=== PATIENT | male | born 1965 | race Two or more races ===

== ENCOUNTER 2020-06-02 06:27 | Outpatient (REF) | payer OTHER, SELFPAY ==
[2020-06-02 07:03] LABS: MANUAL DIFF FLAG NO
[2020-06-02 07:07] LABS: Basophils Percent Auto 0.3 % (0-2); Eosinophils Absolute Auto 0.1 X10*3/uL (0.0-0.4); Eosinophils Percent Auto 0.7 % (0-4); Hematocrit 43.1 % (42-52); Hemoglobin 14.2 g/dl (14.0-18.0); Imm Gran Abs Auto 0.03 X10*3/uL (0.00-0.03); Imm Gran Pct Auto 0.3 % (0.0-0.4); Lymphocytes Absolute Auto 1.9 X10*3/uL (1.2-4.9); Lymphocytes Percent Auto 20.6 % (20-40); Mean Corpuscular HGB Conc 32.9 g/dl (31.0-36.0); Mean Corpuscular Hemoglobin 29.8 pg (27.0-33.0); Mean Corpuscular Volume 90.4 fL (80-98); Mean Platelet Volume 9.1 fL (9.4-12.4); Monocytes Absolute Auto 0.6 X10*3/uL (0.1-1.2); Monocytes Percent Auto 6.5 % (2-11); Neutrophils Absolute Auto 6.5 X10*3/uL (2.0-8.3); Neutrophils Percent Auto 71.6 % (45-73); Platelet Count 315 X10*3/uL (160-400); Red Blood Count 4.77 X10*6/uL (4.60-5.80); Red Cell Distribution Width 12.5 % (11.0-16.0); White Blood Count 9.1 X10*3/uL (4.8-10.8)
[2020-06-02 07:35] LABS: Alanine Aminotransferase 25 U/L (0-40); Albumin Level 4.2 g/dL (3.5-5.0); Alkaline Phosphatase 82 U/L (39-117); Anion Gap 13 (12-20); Aspartate Amino Transferase 20 U/L (5-37); Bilirubin Total 0.7 mg/dL (0.0-1.0); Blood Urea Nitrogen 21 mg/dL (9-16); C Reactive Protein 0.66 mg/dL (< or = 0.50); Calcium 9.1 mg/dL (8.4-10.2); Carbon Dioxide 28 mmol/L (22-29); Chloride 103 mmol/L (96-108); Estimated Glomerular Filt Rate > 60; Glucose Random 103 mg/dL (60-115); Potassium 4.8 mmol/l (3.3-5.1); Sodium 139 mmol/L (135-145); Total Protein 8.2 g/dL (6.5-8.0)
[2020-06-02 09:08] LABS: Erythrocyte Sedimentation Rate 14 MM/HR (0-15)
== END 2020-06-02 06:28 | disposition home or self-care (01) ==
LOC: HO.LAB 06:27
PROVIDERS: PCP Nurse Practitioner Family; Visit Provider Student in an Organized Health Care Education/Training Program
DX: M06.00 Rheumatoid arthritis without rheumatoid factor, unspecified site (principal); Z79.899 Other long term (current) drug therapy
CPT/HCPCS: 36415; 80053; 85025; 85652; 86140

== ENCOUNTER → 2020-06-08 11:29 | Outpatient (BNVA) | payer OTHER, SELFPAY | PROVIDERS: PCP Nurse Practitioner Family; Referring Provider Nurse Practitioner Family; Visit Provider Student in an Organized Health Care Education/Training Program | DX: Z76.89 Persons encountering health services in other specified circumstances (principal) ==

== ENCOUNTER 2020-06-27 16:31 | Outpatient (REF) | payer OTHER, SELFPAY | END 2020-06-27 16:32 | disposition home or self-care (01) | LOC: HO.LAB 16:31 | PROVIDERS: Visit Provider Internal Medicine | DX: Z20.828 Contact with and (suspected) exposure to other viral communicable diseases (principal) | CPT/HCPCS: 36415; C9803; U0003 ==

== ENCOUNTER 2020-09-15 15:48 | Outpatient (REF) | payer OTHER, SELFPAY ==
[2020-09-15 16:42] LABS: MANUAL DIFF FLAG NO
[2020-09-15 16:52] LABS: Basophils Percent Auto 0.4 % (0-2); Eosinophils Absolute Auto 0.1 X10*3/uL (0.0-0.4); Eosinophils Percent Auto 0.6 % (0-4); Hematocrit 37.6 % (42-52); Hemoglobin 12.1 g/dl (14.0-18.0); Imm Gran Abs Auto 0.03 X10*3/uL (0.00-0.03); Imm Gran Pct Auto 0.3 % (0.0-0.4); Lymphocytes Absolute Auto 2.5 X10*3/uL (1.2-4.9); Lymphocytes Percent Auto 26.6 % (20-40); Mean Corpuscular HGB Conc 32.2 g/dl (31.0-36.0); Mean Corpuscular Hemoglobin 29.7 pg (27.0-33.0); Mean Corpuscular Volume 92.2 fL (80-98); Mean Platelet Volume 8.7 fL (9.4-12.4); Monocytes Absolute Auto 0.5 X10*3/uL (0.1-1.2); Monocytes Percent Auto 5.4 % (2-11); Neutrophils Absolute Auto 6.3 X10*3/uL (2.0-8.3); Neutrophils Percent Auto 66.7 % (45-73); Platelet Count 324 X10*3/uL (160-400); Red Blood Count 4.08 X10*6/uL (4.60-5.80); Red Cell Distribution Width 12.7 % (11.0-16.0); White Blood Count 9.4 X10*3/uL (4.8-10.8)
[2020-09-15 17:11] LABS: Alanine Aminotransferase 22 U/L (0-40); Albumin Level 4.2 g/dL (3.5-5.0); Alkaline Phosphatase 85 U/L (39-117); Anion Gap 14 (12-20); Aspartate Amino Transferase 19 U/L (5-37); Bilirubin Total 0.2 mg/dL (0.0-1.0); Blood Urea Nitrogen 21 mg/dL (9-16); C Reactive Protein 0.47 mg/dL (< or = 0.50); Calcium 9.3 mg/dL (8.4-10.2); Carbon Dioxide 27 mmol/L (22-29); Chloride 105 mmol/L (96-108); Estimated Glomerular Filt Rate > 60; Glucose Random 95 mg/dL (60-115); Sodium 141 mmol/L (135-145); Total Protein 8.1 g/dL (6.5-8.0)
[2020-09-15 17:59] LABS: Erythrocyte Sedimentation Rate 20 MM/HR (0-15)
== END 2020-09-15 15:49 | disposition home or self-care (01) ==
LOC: HO.LAB 15:48
PROVIDERS: PCP Nurse Practitioner Family; Visit Provider Student in an Organized Health Care Education/Training Program
DX: M06.00 Rheumatoid arthritis without rheumatoid factor, unspecified site (principal); Z79.899 Other long term (current) drug therapy
CPT/HCPCS: 36415; 80053; 85025; 85652; 86140

== ENCOUNTER 2021-01-17 15:48 | Outpatient (REF) | payer OTHER, SELFPAY ==
[2021-01-17 16:37] LABS: MANUAL DIFF FLAG NO
[2021-01-17 16:41] LABS: Basophils Percent Auto 0.4 % (0-2); Eosinophils Absolute Auto 0.1 X10*3/uL (0.0-0.4); Eosinophils Percent Auto 0.7 % (0-4); Hematocrit 39.2 % (42-52); Hemoglobin 12.9 g/dl (14.0-18.0); Imm Gran Abs Auto 0.05 X10*3/uL (0.00-0.03); Imm Gran Pct Auto 0.4 % (0.0-0.4); Lymphocytes Absolute Auto 2.7 X10*3/uL (1.2-4.9); Lymphocytes Percent Auto 24.2 % (20-40); Mean Corpuscular HGB Conc 32.9 g/dl (31.0-36.0); Mean Corpuscular Hemoglobin 29.1 pg (27.0-33.0); Mean Corpuscular Volume 88.5 fL (80-98); Mean Platelet Volume 8.7 fL (9.4-12.4); Monocytes Absolute Auto 0.8 X10*3/uL (0.1-1.2); Monocytes Percent Auto 7.1 % (2-11); Neutrophils Absolute Auto 7.5 X10*3/uL (2.0-8.3); Neutrophils Percent Auto 67.2 % (45-73); Platelet Count 283 X10*3/uL (160-400); Red Blood Count 4.43 X10*6/uL (4.60-5.80); Red Cell Distribution Width 13.6 % (11.0-16.0); White Blood Count 11.2 X10*3/uL (4.8-10.8)
[2021-01-17 17:02] LABS: Alanine Aminotransferase 25 U/L (0-40); Albumin Level 4.4 g/dL (3.5-5.0); Alkaline Phosphatase 77 U/L (39-117); Anion Gap 14 (12-20); Aspartate Amino Transferase 26 U/L (5-37); Bilirubin Total 0.4 mg/dL (0.0-1.0); Blood Urea Nitrogen 16 mg/dL (9-16); C Reactive Protein 0.53 mg/dL (< or = 0.50); Carbon Dioxide 28 mmol/L (22-29); Chloride 101 mmol/L (96-108); Estimated Glomerular Filt Rate > 60; Glucose Random 95 mg/dL (60-115); Potassium 4.7 mmol/L (3.3-5.1); Sodium 138 mmol/L (135-145); Total Protein 8.4 g/dL (6.5-8.0)
== END 2021-01-17 15:49 | disposition home or self-care (01) ==
LOC: HO.LAB 15:48
PROVIDERS: PCP Nurse Practitioner Family; Visit Provider Student in an Organized Health Care Education/Training Program
DX: M06.00 Rheumatoid arthritis without rheumatoid factor, unspecified site (principal); Z79.899 Other long term (current) drug therapy
CPT/HCPCS: 36415; 80053; 85025; 86140

== ENCOUNTER 2021-05-31 14:18 | Outpatient (REF) | payer OTHER, SELFPAY ==
[2021-05-31 15:09] LABS: MANUAL DIFF FLAG NO
[2021-05-31 15:22] LABS: Basophils Percent Auto 0.3 % (0-2); Eosinophils Absolute Auto 0.1 X10*3/uL (0.0-0.4); Eosinophils Percent Auto 0.8 % (0-4); Hematocrit 39.1 % (42.0-52.0); Imm Gran Abs Auto 0.04 X10*3/uL (0.00-0.03); Imm Gran Pct Auto 0.4 % (0.0-0.4); Lymphocytes Absolute Auto 2.4 X10*3/uL (1.2-4.9); Mean Corpuscular HGB Conc 33.2 g/dl (31.0-36.0); Mean Corpuscular Hemoglobin 29.9 pg (27.0-33.0); Mean Corpuscular Volume 89.9 fL (80.0-98.0); Mean Platelet Volume 8.6 fL (9.4-12.4); Monocytes Absolute Auto 0.7 X10*3/uL (0.1-1.2); Monocytes Percent Auto 6.5 % (2-11); Neutrophils Absolute Auto 7.5 x10*3/uL (2.0-8.3); Platelet Count 297 X10*3/uL (160-400); Red Blood Count 4.35 X10*6/uL (4.60-5.80); Red Cell Distribution Width 12.4 % (11.0-16.0); White Blood Count 10.7 X10*3/uL (4.8-10.8)
[2021-05-31 15:45] LABS: Alanine Aminotransferase 36 U/L (0-40); Albumin Level 4.2 g/dL (3.5-5.0); Alkaline Phosphatase 79 U/L (39-117); Anion Gap 12 (12-20); Aspartate Amino Transferase 26 U/L (5-37); Bilirubin Total 0.2 mg/dL (0.0-1.0); Blood Urea Nitrogen 16 mg/dL (9-16); C Reactive Protein 0.89 mg/dL (< or = 0.50); Calcium 9.6 mg/dL (8.4-10.2); Carbon Dioxide 29 mmol/L (22-29); Chloride 102 mmol/L (96-108); Estimated Glomerular Filt Rate > 60; Glucose Random 93 mg/dL (60-115); Potassium 4.6 mmol/L (3.3-5.1); Sodium 138 mmol/L (135-145); Total Protein 8.4 g/dL (6.5-8.0)
[2021-05-31 16:21] LABS: Erythrocyte Sedimentation Rate 21 MM/HR (0-15)
== END 2021-05-31 14:19 | disposition home or self-care (01) ==
LOC: HO.LAB 14:18
PROVIDERS: PCP Nurse Practitioner Family; Visit Provider Nurse Practitioner Family
DX: M06.00 Rheumatoid arthritis without rheumatoid factor, unspecified site (principal); Z79.899 Other long term (current) drug therapy
CPT/HCPCS: 36415; 80053; 85025; 85652; 86140

== ENCOUNTER 2021-08-31 14:22 | Outpatient (REF) | payer OTHER, SELFPAY ==
[2021-08-31 14:56] LABS: MANUAL DIFF FLAG NO
[2021-08-31 15:22] LABS: Basophils Percent Auto 0.3 % (0-2); Eosinophils Absolute Auto 0.1 X10*3/uL (0.0-0.4); Eosinophils Percent Auto 0.6 % (0-4); Hematocrit 40.7 % (42.0-52.0); Hemoglobin 13.4 g/dl (14.0-18.0); Imm Gran Abs Auto 0.05 X10*3/uL (0.00-0.03); Imm Gran Pct Auto 0.4 % (0.0-0.4); Lymphocytes Absolute Auto 2.7 X10*3/uL (1.2-4.9); Lymphocytes Percent Auto 22.7 % (20-40); Mean Corpuscular HGB Conc 32.9 g/dl (31.0-36.0); Mean Corpuscular Volume 91.1 fL (80.0-98.0); Monocytes Absolute Auto 0.7 X10*3/uL (0.1-1.2); Monocytes Percent Auto 6.1 % (2-11); Neutrophils Absolute Auto 8.3 x10*3/uL (2.0-8.3); Neutrophils Percent Auto 69.9 % (45-73); Platelet Count 304 X10*3/uL (160-400); Red Blood Count 4.47 X10*6/uL (4.60-5.80); Red Cell Distribution Width 12.9 % (11.0-16.0); White Blood Count 11.8 X10*3/uL (4.8-10.8)
[2021-08-31 15:51] LABS: Alanine Aminotransferase 23 U/L (0-40); Albumin Level 4.4 g/dL (3.5-5.0); Alkaline Phosphatase 79 U/L (39-117); Anion Gap 12 (12-20); Aspartate Amino Transferase 20 U/L (5-37); Bilirubin Total 0.4 mg/dL (0.0-1.0); Blood Urea Nitrogen 15 mg/dL (9-16); C Reactive Protein 0.32 mg/dL (< or = 0.50); Carbon Dioxide 29 mmol/L (22-29); Chloride 101 mmol/L (96-108); Estimated Glomerular Filt Rate > 60; Glucose Random 90 mg/dL (60-115); Potassium 5.3 mmol/L (3.3-5.1); Sodium 137 mmol/L (135-145); Total Protein 8.4 g/dL (6.5-8.0)
[2021-08-31 15:57] LABS: Erythrocyte Sedimentation Rate 11 MM/HR (0-15)
== END 2021-08-31 14:23 | disposition home or self-care (01) ==
LOC: HO.LAB 14:22
PROVIDERS: PCP Nurse Practitioner Family; Visit Provider Nurse Practitioner Family
DX: M06.00 Rheumatoid arthritis without rheumatoid factor, unspecified site (principal); Z79.899 Other long term (current) drug therapy
CPT/HCPCS: 36415; 80053; 85025; 85652; 86140

== ENCOUNTER 2021-09-07 14:51 | Outpatient (REF) | payer OTHER, SELFPAY ==
[2021-09-07 15:19] LABS: MANUAL DIFF FLAG NO
[2021-09-07 15:41] LABS: Basophils Percent Auto 0.4 % (0-2); Eosinophils Absolute Auto 0.1 X10*3/uL (0.0-0.4); Eosinophils Percent Auto 0.7 % (0-4); Hematocrit 40.3 % (42.0-52.0); Hemoglobin 13.3 g/dl (14.0-18.0); Imm Gran Abs Auto 0.06 X10*3/uL (0.00-0.03); Imm Gran Pct Auto 0.5 % (0.0-0.4); Lymphocytes Absolute Auto 3.1 X10*3/uL (1.2-4.9); Lymphocytes Percent Auto 27.9 % (20-40); Mean Corpuscular Volume 90.8 fL (80.0-98.0); Mean Platelet Volume 8.8 fL (9.4-12.4); Monocytes Absolute Auto 0.9 X10*3/uL (0.1-1.2); Monocytes Percent Auto 8.3 % (2-11); Neutrophils Absolute Auto 6.9 x10*3/uL (2.0-8.3); Neutrophils Percent Auto 62.2 % (45-73); Platelet Count 267 X10*3/uL (160-400); Red Blood Count 4.44 X10*6/uL (4.60-5.80); Red Cell Distribution Width 12.8 % (11.0-16.0); White Blood Count 11.2 X10*3/uL (4.8-10.8)
[2021-09-07 16:06] LABS: Alanine Aminotransferase 24 U/L (0-40); Albumin Level 4.3 g/dL (3.5-5.0); Alkaline Phosphatase 76 U/L (39-117); Anion Gap 13 (12-20); Aspartate Amino Transferase 20 U/L (5-37); Bilirubin Total 0.5 mg/dL (0.0-1.0); Blood Urea Nitrogen 18 mg/dL (9-16); C Reactive Protein 0.61 mg/dL (< or = 0.50); Calcium 9.6 mg/dL (8.4-10.2); Carbon Dioxide 27 mmol/L (22-29); Chloride 102 mmol/L (96-108); Estimated Glomerular Filt Rate > 60; Glucose Random 90 mg/dL (60-115); Potassium 4.7 mmol/L (3.3-5.1); Sodium 137 mmol/L (135-145); Total Protein 8.1 g/dL (6.5-8.0)
== END 2021-09-07 14:52 | disposition home or self-care (01) ==
LOC: HO.LAB 14:51
PROVIDERS: PCP Nurse Practitioner Family; Visit Provider Nurse Practitioner Family
DX: M06.00 Rheumatoid arthritis without rheumatoid factor, unspecified site (principal)
CPT/HCPCS: 36415; 80053; 85025; 86140

== ENCOUNTER → 2022-04-05 13:27 | Outpatient (BNVA) | payer OTHER, SELFPAY | PROVIDERS: PCP Nurse Practitioner Family; Visit Provider Internal Medicine | DX: S67.21XA Crushing injury of right hand, initial encounter (principal); W24.0XXA Contact with lifting devices, not elsewhere classified, initial encounter | CPT/HCPCS: 12013; 99203 ==

== ENCOUNTER → 2022-04-08 08:23 | Outpatient (BNVA) | payer OTHER, SELFPAY | PROVIDERS: PCP Nurse Practitioner Family; Visit Provider Internal Medicine | DX: S67.21XA Crushing injury of right hand, initial encounter (principal); W24.0XXA Contact with lifting devices, not elsewhere classified, initial encounter | CPT/HCPCS: 99213 ==

== ENCOUNTER → 2022-04-15 12:59 | Outpatient (BNVA) | payer OTHER, SELFPAY | PROVIDERS: PCP Nurse Practitioner Family; Visit Provider Internal Medicine | DX: S67.21XA Crushing injury of right hand, initial encounter (principal); W24.0XXA Contact with lifting devices, not elsewhere classified, initial encounter | CPT/HCPCS: 99213 ==

== ENCOUNTER 2022-05-10 11:20 | Outpatient (REF) | payer OTHER, SELFPAY ==
[2022-05-10 13:34] LABS: MANUAL DIFF FLAG NO
[2022-05-10 13:41] LABS: Basophils Percent Auto 0.5 % (0-2); Eosinophils Percent Auto 0.3 % (0-4); Hemoglobin 14.8 g/dl (14.0-18.0); Imm Gran Abs Auto 0.04 X10*3/uL (0.00-0.03); Imm Gran Pct Auto 0.5 % (0.0-0.4); Lymphocytes Absolute Auto 2.2 X10*3/uL (1.2-4.9); Lymphocytes Percent Auto 25.3 % (20-40); Mean Corpuscular HGB Conc 32.9 g/dl (31.0-36.0); Mean Corpuscular Hemoglobin 29.1 pg (27.0-33.0); Mean Corpuscular Volume 88.6 fL (80.0-98.0); Mean Platelet Volume 9.2 fL (9.4-12.4); Monocytes Absolute Auto 0.6 X10*3/uL (0.1-1.2); Monocytes Percent Auto 7.3 % (2-11); Neutrophils Absolute Auto 5.8 x10*3/uL (2.0-8.3); Neutrophils Percent Auto 66.1 % (45-73); Platelet Count 314 X10*3/uL (160-400); Red Blood Count 5.08 X10*6/uL (4.60-5.80); Red Cell Distribution Width 12.3 % (11.0-16.0); White Blood Count 8.7 X10*3/uL (4.8-10.8)
[2022-05-10 13:53] LABS: Alanine Aminotransferase 18 U/L (0-40); Aspartate Amino Transferase 18 U/L (5-37); C Reactive Protein 0.23 mg/dL (< or = 0.50); Estimated Glomerular Filt Rate > 60
[2022-05-10 14:34] LABS: Erythrocyte Sedimentation Rate 12 MM/HR (0-15)
== END 2022-05-10 11:21 | disposition home or self-care (01) ==
LOC: HO.10HDL 11:20
PROVIDERS: Visit Provider Nurse Practitioner Family
DX: M06.00 Rheumatoid arthritis without rheumatoid factor, unspecified site (principal); Z79.899 Other long term (current) drug therapy
CPT/HCPCS: 36415; 82565; 84450; 84460; 85025; 85652; 86140

== ENCOUNTER 2022-06-29 07:59 | Outpatient (REF) | payer OTHER, SELFPAY ==
--- NOTE | ~2022-06-29 | XR_ITS ---
EXAMINATION: XR SHOULDER, LEFT CLINICAL INFORMATION: Primary osteoarthritis. COMPARISON: None TECHNIQUE: AP external rotation, Grashey, scapular Y, and axillary views of the left shoulder. FINDINGS: There is loss of glenohumeral and AC joint space with periarticular spurring. No visible acute fracture, dislocation or subluxation seen. No bony erosive changes. The soft tissues are normal. XR/XR shoulder LT min 2V IMPRESSION: Degenerative arthritic changes left shoulder joint. No visible acute fracture or dislocation seen.
== END 2022-06-29 08:00 | disposition home or self-care (01) ==
LOC: HO.XRAY 07:59
PROVIDERS: Visit Provider Nurse Practitioner Family
DX: M19.012 Primary osteoarthritis, left shoulder (principal)
CPT/HCPCS: 73030

== ENCOUNTER 2022-09-11 15:14 | Outpatient (REF) | payer OTHER, SELFPAY ==
--- NOTE | ~2022-09-11 | XR_ITS ---
EXAMINATION: XR ANKLE, LEFT CLINICAL INFORMATION: Pain. COMPARISON: Portions of the MRI left ankle dated 10/02/2018; left ankle radiographs dated 09/12/2016. TECHNIQUE: AP, lateral, and mortise views of the left ankle. FINDINGS: Bony alignment and mineralization are normal. The ankle mortise is intact. There is moderate osteoarthritic change of the tibiotalar joint. No joint effusion is seen. Boehler's angle is normal. There is again spurring and erosive change at the Achilles tendon insertion onto the posterior calcaneus. There is a small to moderate plantar calcaneal spur. There is chronic, calcified periosteal thickening of the medial malleolus, which is likely a sequela of remote injury. No focal soft tissue swelling, gas or foreign body is seen. XR/XR ankle LT 2V IMPRESSION: No acute fracture or dislocation is seen. There is no left ankle effusion. There are again degenerative changes of the tibiotalar joint. Calcaneal spurring is again noted, and there is stable erosive change of the posterior calcaneal margin at the insertion of the Achilles tendon. The appearance is similar to 09/09/2016.
[2022-09-11 16:31] LABS: MANUAL DIFF FLAG NO
[2022-09-11 17:22] LABS: Basophils Absolute Auto 0.1 X10*3/uL (0.0-0.2); Basophils Percent Auto 0.5 % (0-2); Eosinophils Absolute Auto 0.1 X10*3/uL (0.0-0.4); Eosinophils Percent Auto 1.3 % (0-4); Hemoglobin 13.3 g/dl (14.0-18.0); Imm Gran Abs Auto 0.06 X10*3/uL (0.00-0.03); Imm Gran Pct Auto 0.6 % (0.0-0.4); Lymphocytes Absolute Auto 2.4 X10*3/uL (1.2-4.9); Lymphocytes Percent Auto 24.5 % (20-40); Mean Corpuscular HGB Conc 33.3 g/dl (31.0-36.0); Mean Corpuscular Hemoglobin 29.1 pg (27.0-33.0); Mean Corpuscular Volume 87.5 fL (80.0-98.0); Mean Platelet Volume 8.8 fL (9.4-12.4); Monocytes Absolute Auto 0.8 X10*3/uL (0.1-1.2); Monocytes Percent Auto 8.1 % (2-11); Neutrophils Absolute Auto 6.3 x10*3/uL (2.0-8.3); Platelet Count 299 X10*3/uL (160-400); Red Blood Count 4.57 X10*6/uL (4.60-5.80); Red Cell Distribution Width 12.7 % (11.0-16.0); White Blood Count 9.7 X10*3/uL (4.8-10.8)
[2022-09-11 17:59] LABS: Alanine Aminotransferase 20 U/L (0-40); Aspartate Amino Transferase 19 U/L (5-37); C Reactive Protein 0.66 mg/dL (< or = 0.50); Estimated Glomerular Filt Rate > 60
[2022-09-11 18:03] LABS: Erythrocyte Sedimentation Rate 26 MM/HR (0-15)
== END 2022-09-11 15:15 | disposition home or self-care (01) ==
LOC: HO.LAB 15:14
PROVIDERS: PCP Nurse Practitioner Family; Visit Provider Nurse Practitioner Family
DX: M06.00 Rheumatoid arthritis without rheumatoid factor, unspecified site (principal); M25.572 Pain in left ankle and joints of left foot; M19.011 Primary osteoarthritis, right shoulder; M19.012 Primary osteoarthritis, left shoulder; Z79.899 Other long term (current) drug therapy
CPT/HCPCS: 36415; 73600; 82565; 84450; 84460; 85025; 85652; 86140

== ENCOUNTER 2022-09-30 14:50 | Outpatient (REF) | payer OTHER, SELFPAY ==
[2022-09-30 15:56] LABS: Uric Acid 5.3 mg/dL (3.4-7.0)
[2022-10-02 05:04] LABS: HBsAGNum1 0.44 S/CO (0.00-0.99); Hepatitis A Antibody IgM 0.15 Index (0-0.79); Hepatitis B Core Antibody Nonreactive (Nonreactive); Hepatitis B Surface Antigen Negative (Negative); ~Hepatitis A Antibody IgM Nonreactive (Nonreactive); ~Hepatitis B Surface Antibody NONREACTIVE (Nonreactive); ~Hepatitis C Antibody Nonreactive (Nonreactive)
[2022-10-02 13:42] LABS: TS Negative Control Passed; TS Panel A 0; TS Panel B 0; TS Positive Control Passed; TSpotTB Negative (Negative)
== END 2022-09-30 14:51 | disposition home or self-care (01) ==
LOC: HO.LAB 14:50
PROVIDERS: PCP Nurse Practitioner Family; Visit Provider Nurse Practitioner Family
DX: M25.50 Pain in unspecified joint (principal); M06.00 Rheumatoid arthritis without rheumatoid factor, unspecified site
CPT/HCPCS: 36415; 84550; 86481; 86704; 86706; 86709; 86803; 87340

== ENCOUNTER → 2022-10-09 15:21 | Outpatient (BNVA) | payer OTHER, SELFPAY | PROVIDERS: PCP Nurse Practitioner Family; Visit Provider Nurse Practitioner Family | DX: Z13.89 Encounter for screening for other disorder (principal) ==

== ENCOUNTER 2022-10-28 14:42 | Outpatient (REF) | payer OTHER, SELFPAY ==
[2022-10-28 14:52] LABS: MANUAL DIFF FLAG NO
[2022-10-28 15:13] LABS: Basophils Absolute Auto 0.1 X10*3/uL (0.0-0.2); Basophils Percent Auto 0.6 % (0-2); Eosinophils Absolute Auto 0.1 X10*3/uL (0.0-0.4); Eosinophils Percent Auto 0.9 % (0-4); Hematocrit 41.2 % (42.0-52.0); Hemoglobin 13.5 g/dl (14.0-18.0); Imm Gran Abs Auto 0.04 X10*3/uL (0.00-0.03); Imm Gran Pct Auto 0.5 % (0.0-0.4); Lymphocytes Absolute Auto 2.8 X10*3/uL (1.2-4.9); Mean Corpuscular HGB Conc 32.8 g/dl (31.0-36.0); Mean Corpuscular Hemoglobin 29.1 pg (27.0-33.0); Mean Corpuscular Volume 88.8 fL (80.0-98.0); Monocytes Absolute Auto 0.8 X10*3/uL (0.1-1.2); Monocytes Percent Auto 9.1 % (2-11); Neutrophils Absolute Auto 4.5 x10*3/uL (2.0-8.3); Neutrophils Percent Auto 54.9 % (45-73); Platelet Count 293 X10*3/uL (160-400); Red Blood Count 4.64 X10*6/uL (4.60-5.80); Red Cell Distribution Width 13.1 % (11.0-16.0); White Blood Count 8.2 X10*3/uL (4.8-10.8)
[2022-10-28 15:37] LABS: Alanine Aminotransferase 19 U/L (0-40); Albumin Level 4.1 g/dL (3.5-5.0); Alkaline Phosphatase 78 U/L (39-117); Anion Gap 10 (12-20); Aspartate Amino Transferase 20 U/L (5-37); Bilirubin Total 0.4 mg/dL (0.0-1.0); Blood Urea Nitrogen 14 mg/dL (9-16); C Reactive Protein 0.22 mg/dL (< or = 0.50); Calcium 9.9 mg/dL (8.4-10.2); Carbon Dioxide 29 mmol/L (22-29); Chloride 103 mmol/L (96-108); Estimated Glomerular Filt Rate > 60; Glucose Random 93 mg/dL (60-115); Potassium 4.7 mmol/L (3.3-5.1); Sodium 137 mmol/L (135-145); Total Protein 8.1 g/dL (6.5-8.0)
[2022-10-28 15:57] LABS: Erythrocyte Sedimentation Rate 13 MM/HR (0-15)
== END 2022-10-28 14:43 | disposition home or self-care (01) ==
LOC: HO.LAB 14:42
PROVIDERS: PCP Nurse Practitioner Family; Visit Provider Nurse Practitioner Family
DX: M06.00 Rheumatoid arthritis without rheumatoid factor, unspecified site (principal)
CPT/HCPCS: 36415; 80053; 85025; 85652; 86140

== ENCOUNTER → 2022-10-31 15:39 | Outpatient (BNVA) | payer OTHER, SELFPAY | PROVIDERS: PCP Nurse Practitioner Family; Visit Provider Nurse Practitioner Family ==

== ENCOUNTER 2023-01-20 14:57 | Outpatient (AMB) | payer OTHER, SELFPAY ==
[2023-01-20 15:10] VITALS: BP 122/74; PULSE 94; TEMP 36.8; O2SAT 97; BMI 28.2
--- NOTE | 2023-01-20 15:10 | A.OFFVIS_ITS ---
Intake Vital Signs 01/20/23 15:10 Height 5 ft 8 in Weight 185 lb 10.067 oz BMI 28.2 BP 122/74 Blood Pressure Location Lt brachial Position Sitting Pulse 94 Pulse Source Pulse Oximeter Temp 98.3 F Pulse Oximetry (%) 97 Intake Visit Reasons: rheumatoid arthritis Intake Note: Pt seen today for RA follow up. States he is doing well, denies new or increased joint pain. 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 He was last seen by Vilma in October. He remains on Humira 40 mg every 2 weeks. He says in general this summer he has felt with minimal discomfort in the joints. He does note some stiffness in the left ankle and the left shoulder. He is having some dental work done. This has not resulted in any infections so far. He bicycles to work and that is about a 2 [address] trip. [facility] Medical History Astigmatism intermediate methotrexate user Seronegative rheumatoid arthritis Surgical History History of tonsillectomy Family History Mother Diabetes Arthritis Social History Household Members: Spouse and Children Housing: House Alcohol intake: never Patient Tobacco Use Status: Never used Tobacco e-Cigarette/Vaping Use: Never Used Current occupational status: employed Cognitive needs: No Hearing needs: No Vision needs: No Review of Systems Const Details: Negative for appetite change, weight change, fever, chills, malaise and fatigue Eyes Details: Negative for vision change, dry eyes,headaches and dizziness Card Details: Negative chest pain, edema and syncope Resp Details: Negative for SOB, cough and wheezing GI Details: Negative indigestion/heartburn, nausea, abdominal pain, bowel changes, diarrhea, constipation and bloody stool. Skin/Breast Details: Negative for itching, rash, hives, Raynaud's symptoms, sun sensitivity, and skin cancer John/Lymph Details: Negative for excessive bruising or bleeding. Physical Exam Vital Signs: Last Vital Signs Temp 98.3 F 01/20/23 15:10 Pulse 94 01/20/23 15:10 BP 122/74 01/20/23 15:10 Pulse Ox 97 01/20/23 15:10 BMI result Body Mass Index 28.2 APPEARANCE: Patient in no acute distress EYES no redness, pupils equal and reactive to light, eyelids normal EXTREMITIES: No edema, no calf tenderness, normal peripheral pulses. SKIN: No inflammatory or neoplastic lesions. Normal color and turgor JOINT EXAM: Cervical Spine:? Full range of motion without pain; no tenderness. Thoracic Spine:? No tenderness on palpation. Lumbar Spine:? Alignment normal.? Full range of motion without pain, no tenderness. Hands:? Normal pain-free range of motion without tenderness, swelling, increased warmth or erythema. Able to make a full fist and has a good dental assistant medical assistant strength. Wrists: Normal pain-free range of motion without tenderness, swelling, increased warmth or erythema. Elbows: Normal pain-free range of motion without tenderness, swelling, increased warmth or erythema. Shoulders: LEFT:? Mild discomfort with abduction at 150 degrees. Motion seems to be limited at that point. There is also some limitation of motion to about 20 degrees of internal or external rotation. The shoulder is not tender. There is no abductor weakness, adenopathy or swelling. ? RIGHT:? Slight limitation of motion but no pain.? No weakness, swelling, increased warmth or erythema. Hips:? Full range of motion without pain. Hip bursa: No tenderness. Knees:? Normal pain-free range of motion without tenderness, swelling, increased warmth or erythema.? There is no effusion or crepitation Ankles:? LEFT:? Normal range of motion.? No tenderness. There probably is some mild valgus deformity at the ankle. There is slight lateral swelling and medial swelling without redness or warmth. There is minimal medial tenderness. ? RIGHT:? Normal range of motion.? No tenderness, swelling, increased warmth or erythema. Feet:? Left: Slight pes planus deformity but no tenderness. Minimal 1st MTP bony enlargement without tenderness. Right: Normal pain-free range of motion with slight 1st MTP bony enlargement. No tenderness, soft tissue swelling, increased warmth or erythema.? Results Reviewed Results Reviewed: Laboratory Tests 09/30/22 10/28/22 10/28/22 15:04 14:50 14:50 WBC 8.2 Hgb 13.5 L ESR 13 TB Test (T-Spot) Com Negative [address] [address] XRay Report Signed Patient: Joseph Hein MR#: [id number] : 1965 Acct:[id number] Age/Sex: 57 / M ADM Date: 09/11/[address]: Sophia Flanagan NP Ordering Physician: Sophia Flanagan NP Date of Service: 09/11/22 Procedure(s): XR ankle LT 2V Accession Number(s): [id number] cc: Sophia Flanagan NP~ EXAMINATION: XR ANKLE, LEFT CLINICAL INFORMATION: Pain.? COMPARISON: Portions of the MRI left ankle dated 10/02/2018; left ankle radiographs dated 09/12/2016. TECHNIQUE: AP, lateral, and mortise views of the left ankle. FINDINGS: Bony alignment and mineralization are normal. The ankle mortise is intact. There is moderate osteoarthritic change of the tibiotalar joint. No joint effusion is seen. Boehler's angle is normal. There is again spurring and erosive change at the Achilles tendon insertion onto the posterior calcaneus. There is a small to moderate plantar calcaneal spur. There is chronic, calcified periosteal thickening of the medial malleolus, which is likely a sequela of remote injury. No focal soft tissue swelling, gas or foreign body is seen. XR/XR ankle LT 2V IMPRESSION: No acute fracture or dislocation is seen. There is no left ankle effusion. There are again degenerative changes of the tibiotalar joint. Calcaneal spurring is again noted, and there is stable erosive change of the posterior calcaneal margin at the insertion of the Achilles tendon. The appearance is similar to 09/09/2016. Dictated By: Caio Desouza MD Signed By: <Electronically signed by Caio Desouza MD? Assessment & Plan Assessment & Plan (1) Long-term use of immunosuppressant medication: Code(s): Z79.60 - intermediate (current) use of unspecified immunomodulators and immunosuppressants (2) Osteoarthritis of left ankle: Code(s): M19.072 - Primary osteoarthritis, left ankle and foot (3) Osteoarthritis of shoulders, bilateral: Code(s): M19.011 - Primary osteoarthritis, right shoulder; M19.012 - Primary osteoarthritis, left shoulder (4) Seronegative rheumatoid arthritis: Comment: Methotrexate 09/2016 -self discontinued 05/2021 Humira 08/2018- present patient doing well for many years. Dose decreased to every 3 weeks in May, then patient missed a dose of Humira. 09/09/2022 patient with increased synovitis on exam, prednisone taper provided and Humira changed back to every 2 weeks. Code(s): M06.00 - Rheumatoid arthritis without rheumatoid factor, unspecified site Plan Rheumatoid arthritis with I think good control of synovitis with current regimen. I think there is some longstanding osteoarthritis in the left ankle and left shoulder. There may also be some OA in the right shoulder. We will continue with current treatment and have a recheck visit in about 5 months. Coding Level of Care Code Est Pt Level 3 (58321) Diagnoses Long-term use of immunosuppressant medication Z79.60 Osteoarthritis of left ankle M19.072 Osteoarthritis of shoulders, bilateral M19.011; M19.012 Seronegative rheumatoid arthritis M06.00
== END 2023-01-20 16:10 | disposition home or self-care (01) ==
PROVIDERS: PCP Nurse Practitioner Family; Visit Provider Internal Medicine Rheumatology
DX: M06.09 Rheumatoid arthritis without rheumatoid factor, multiple sites (principal); Z79.60 Long term (current) use of unspecified immunomodulators and immunosuppressants; M19.072 Primary osteoarthritis, left ankle and foot; M19.011 Primary osteoarthritis, right shoulder; M19.012 Primary osteoarthritis, left shoulder
CPT/HCPCS: 99213

== ENCOUNTER → 2023-01-20 14:57 | Outpatient (BNVA) | payer OTHER, SELFPAY | PROVIDERS: PCP Nurse Practitioner Family; Visit Provider Internal Medicine Rheumatology ==

== ENCOUNTER 2023-06-09 14:13 | Outpatient (REF) | payer OTHER, SELFPAY ==
[2023-06-09 14:49] LABS: MANUAL DIFF FLAG NO
[2023-06-09 15:27] LABS: Basophils Absolute Auto 0.1 X10*3/uL (0.0-0.2); Basophils Percent Auto 0.5 % (0-2); Eosinophils Absolute Auto 0.1 X10*3/uL (0.0-0.4); Eosinophils Percent Auto 0.6 % (0-4); Hemoglobin 13.4 g/dl (14.0-18.0); Imm Gran Abs Auto 0.06 X10*3/uL (0.00-0.03); Imm Gran Pct Auto 0.6 % (0.0-0.4); Lymphocytes Absolute Auto 2.7 X10*3/uL (1.2-4.9); Lymphocytes Percent Auto 27.5 % (20-40); Mean Corpuscular HGB Conc 33.5 g/dl (31.0-36.0); Mean Corpuscular Hemoglobin 29.2 pg (27.0-33.0); Mean Corpuscular Volume 87.1 fL (80.0-98.0); Monocytes Absolute Auto 0.8 X10*3/uL (0.1-1.2); Monocytes Percent Auto 7.8 % (2-11); Neutrophils Absolute Auto 6.2 x10*3/uL (2.0-8.3); Platelet Count 320 X10*3/uL (160-400); Red Blood Count 4.59 X10*6/uL (4.60-5.80); Red Cell Distribution Width 12.3 % (11.0-16.0); White Blood Count 9.8 X10*3/uL (4.8-10.8)
[2023-06-09 15:45] LABS: Alanine Aminotransferase 21 U/L (0-40); Aspartate Amino Transferase 20 U/L (5-37); C Reactive Protein 0.28 mg/dL (< or = 0.50)
[2023-06-09 18:53] LABS: Erythrocyte Sedimentation Rate 23 MM/HR (0-15)
== END 2023-06-09 14:14 | disposition home or self-care (01) ==
LOC: HO.LAB 14:13
PROVIDERS: PCP Nurse Practitioner Family; Visit Provider Nurse Practitioner Family
DX: M06.00 Rheumatoid arthritis without rheumatoid factor, unspecified site (principal); M19.072 Primary osteoarthritis, left ankle and foot; M19.011 Primary osteoarthritis, right shoulder; M19.012 Primary osteoarthritis, left shoulder; Z79.60 Long term (current) use of unspecified immunomodulators and immunosuppressants; Z79.899 Other long term (current) drug therapy
CPT/HCPCS: 36415; 84450; 84460; 85025; 85652; 86140

== ENCOUNTER 2023-06-09 14:13 | Outpatient (AMB) | payer OTHER, SELFPAY ==
--- NOTE | 2023-06-09 14:16 | A.OFFVIS_ITS ---
Intake Vital Signs 06/09/23 14:23 Height 5 ft 8 in Weight 187 lb 13.341 oz BMI 28.6 BP 128/60 Blood Pressure Location Lt brachial Position Sitting Pulse 106 H Pulse Source Pulse Oximeter Temp 99.7 F Temp Source Skin Pulse Oximetry (%) 98 Oxygen Delivery Method Room Air Oxygen Flow Rate 98 Intake Visit Reasons: RA Intake Note: Patient last seen 01/20/23, presents today for RA follow up. 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 He remains on Humira 40 mg every 2 weeks. He says in general he is doing well with minimal discomfort in the joints. He does note some stiffness in the left ankle and the left shoulder that improves with activity. He bicycles to work and that is about a 2 mile trip. 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 Seronegative rheumatoid arthritis Surgical History History of tonsillectomy Family History Mother Diabetes Arthritis Social History Household Members: Spouse and Children Housing: House Alcohol intake: never Patient Tobacco Use Status: Never used Tobacco e-Cigarette/Vaping Use: Never Used Current occupational status: employed Cognitive needs: No Hearing needs: No Vision needs: No Review of Systems Const All systems reviewed & are unremarkable except as noted in HPI and below Physical Exam Vital Signs: Last Vital Signs Temp 99.7 F 06/09/23 14:23 Pulse 106 H 06/09/23 14:23 BP 128/60 06/09/23 14:23 Pulse Ox 98 06/09/23 14:23 Oxygen Delivery Method Room Air 06/09/23 14:23 Oxygen Flow Rate 98 06/09/23 14:23 BMI result Body Mass Index 28.6 APPEARANCE: Patient in no acute distress, groomed and nourished EYES no redness, eyelids normal EXTREMITIES: No edema, no calf tenderness, normal peripheral pulses. SKIN: No inflammatory or neoplastic lesions. Normal color and turgor JOINT EXAM: Cervical Spine:? Full range of motion without pain; no tenderness. Thoracic Spine:? No tenderness on palpation. Lumbar Spine:? Alignment normal.? Full range of motion without pain, no tenderness. Hands:? Normal pain-free range of motion without tenderness, swelling, increased warmth or erythema. Able to make a full fist and has a good tube cutter strength. Wrists: Normal pain-free range of motion without tenderness, swelling, increased warmth or erythema. Elbows: Normal pain-free range of motion without tenderness, swelling, increased warmth or erythema. Shoulders: LEFT:? Mild discomfort with abduction at 150 degrees. Motion seems to be limited at that point. There is also some limitation of motion to about 20 degrees of internal or external rotation. The shoulder is not tender. There is no abductor weakness, adenopathy or swelling. ? RIGHT:? Slight limitation of motion but no pain.? No weakness, swelling, increased warmth or erythema. Hips:? Full range of motion without pain. Hip bursa: No tenderness. Knees:? Normal pain-free range of motion without tenderness, swelling, increased warmth or erythema.? There is no effusion or crepitation Ankles:? LEFT:? Normal range of motion.? No tenderness. There probably is some mild valgus deformity at the ankle. There is slight lateral swelling and medial swelling without redness or warmth. There is minimal medial tenderness. ? RIGHT:? Normal range of motion.? No tenderness, swelling, increased warmth or erythema. Feet:? Left: Slight pes planus deformity but no tenderness. Minimal 1st MTP bony enlargement without tenderness. Right: Normal pain-free range of motion with slight 1st MTP bony enlargement. No tenderness, soft tissue swelling, increased warmth or erythema.? Assessment & Plan Assessment & Plan (1) Seronegative rheumatoid arthritis: Comment: Methotrexate 09/2016 -self discontinued 05/2021 Humira 08/2018- present patient doing well for many years. Dose decreased to every 3 weeks in May, then patient missed a dose of Humira. 09/09/2022 patient with increased synovitis on exam, prednisone taper provided and Humira changed back to every 2 weeks. Code(s): M06.00 - Rheumatoid arthritis without rheumatoid factor, unspecified site (2) Long-term use of immunosuppressant medication: Code(s): Z79.60 - skilled nursing (current) use of unspecified immunomodulators and immunosuppressants (3) Osteoarthritis of left ankle: Code(s): M19.072 - Primary osteoarthritis, left ankle and foot Qualifiers: Osteoarthritis type: primary Qualified Code(s): M19.072 - Primary osteoarthritis, left ankle and foot (4) Osteoarthritis of shoulders, bilateral: Code(s): M19.011 - Primary osteoarthritis, right shoulder; M19.012 - Primary osteoarthritis, left shoulder Qualifiers: Osteoarthritis type: primary Qualified Code(s): M19.011 - Primary osteoarthritis, right shoulder; M19.012 - Primary osteoarthritis, left shoulder Plan #Rheumatoid arthritis/OA multiple sites. Joseph, 57 yoM with Seronegative RA effectively managed on HUMIRA 40mg Q2W, He has not had joint swelling since last visit and no synovitis seen on PE. He does of osteoarthritis in the left ankle and shoulders seen on imaging. He has not had to use Tylenol or Ibuprofen for joint pain. We will continue with Humira a prescribed. 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 Patient denies side effects of Humira and none seen on PE. He is reminded to stop Humira if he has a fever or infection. 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) use of unspecified immunomodulators and immunosuppressants, Z79.899 - Other medical terminologist (current) drug therapy Complete Blood Count Auto Diff 06/09/23 M06.00 - Rheumatoid arthritis without rheumatoid factor, unspecified site, Z79.60 - ferry terminal supervisor (current) use of unspecified immunomodulators and immunosuppressants, Z79.899 - Other medical terminologist (current) drug therapy Erythrocyte Sedimentation Rate 6 Months M06.00 - Rheumatoid arthritis without rheumatoid factor, unspecified site, Z79.60 - skilled nursing (current) use of unspecified immunomodulators and immunosuppressants C Reactive Protein 6 Months M06.00 - Rheumatoid arthritis without rheumatoid factor, unspecified site, Z79.60 - skilled nursing (current) use of unspecified immunomodulators and immunosuppressants Complete Blood Count Auto Diff 6 Months M06.00 - Rheumatoid arthritis without rheumatoid factor, unspecified site, Z79.60 - skilled nursing (current) use of unspecified immunomodulators and immunosuppressants, Z79.899 - Other medical terminologist (current) drug therapy Comprehensive Met. Panel 6 Months M06.00 - Rheumatoid arthritis without rheumatoid factor, unspecified site, Z79.60 - skilled nursing (current) use of unspecified immunomodulators and immunosuppressants Erythrocyte Sedimentation Rate 06/09/23 M06.00 - Rheumatoid arthritis without rheumatoid factor, unspecified site, Z79.60 - skilled nursing (current) use of u nspecified immunomodulators and immunosuppressants Alanine Aminotransferase 06/09/23 M06.00 - Rheumatoid arthritis without rheumatoid factor, unspecified site, Z79.60 - skilled nursing (current) use of unspecified immunomodulators and immunosuppressants, Z79.899 - Other fpc (current) drug therapy Coding Level of Care Code Est Pt Level 3 (91414) Diagnoses Seronegative rheumatoid arthritis M06.00 Long-term use of immunosuppressant medication Z79.60 Primary osteoarthritis of left ankle M19.072 Osteoarthritis type: primary Primary osteoarthritis of both shoulders M19.011; M19.012 Osteoarthritis type: primary
[2023-06-09 14:23] VITALS: BP 128/60; PULSE 106; TEMP 37.6; O2SAT 98; BMI 28.6
== END 2023-06-09 14:31 | disposition home or self-care (01) ==
PROVIDERS: PCP Nurse Practitioner Family; Visit Provider Nurse Practitioner Family
DX: M06.00 Rheumatoid arthritis without rheumatoid factor, unspecified site (principal); Z79.60 Long term (current) use of unspecified immunomodulators and immunosuppressants; M19.072 Primary osteoarthritis, left ankle and foot; M19.011 Primary osteoarthritis, right shoulder; M19.012 Primary osteoarthritis, left shoulder
CPT/HCPCS: 99213

== ENCOUNTER 2023-11-28 15:01 | Outpatient (REF) | payer OTHER, SELFPAY ==
[2023-11-28 15:10] LABS: MANUAL DIFF FLAG NO
[2023-11-28 15:51] LABS: Basophils Percent Auto 0.6 % (0-2); Eosinophils Absolute Auto 0.1 X10*3/uL (0.0-0.4); Eosinophils Percent Auto 1.4 % (0-4); Hematocrit 40.1 % (42.0-52.0); Hemoglobin 13.9 g/dl (14.0-18.0); Imm Gran Abs Auto 0.03 X10*3/uL (0.00-0.03); Imm Gran Pct Auto 0.4 % (0.0-0.4); Lymphocytes Absolute Auto 2.7 X10*3/uL (1.2-4.9); Lymphocytes Percent Auto 37.5 % (20-40); Mean Corpuscular HGB Conc 34.7 g/dl (31.0-36.0); Mean Corpuscular Hemoglobin 30.3 pg (27.0-33.0); Mean Corpuscular Volume 87.6 fL (80.0-98.0); Monocytes Absolute Auto 0.6 X10*3/uL (0.1-1.2); Monocytes Percent Auto 8.5 % (2-11); Neutrophils Absolute Auto 3.7 x10*3/uL (2.0-8.3); Neutrophils Percent Auto 51.6 % (45-73); Platelet Count 271 X10*3/uL (160-400); Red Blood Count 4.58 X10*6/uL (4.60-5.80); Red Cell Distribution Width 12.4 % (11.0-16.0); White Blood Count 7.2 X10*3/uL (4.8-10.8)
[2023-11-28 16:32] LABS: Alanine Aminotransferase 18 U/L (0-40); Albumin Level 4.5 g/dL (3.5-5.0); Alkaline Phosphatase 63 U/L (39-117); Anion Gap 10 (12-20); Aspartate Amino Transferase 20 U/L (5-37); Bilirubin Total 0.5 mg/dL (0.0-1.0); Blood Urea Nitrogen 13 mg/dL (9-16); C Reactive Protein 0.23 mg/dL (< or = 0.50); Carbon Dioxide 29 mmol/L (22-29); Chloride 104 mmol/L (96-108); Estimated Glomerular Filt Rate > 60; Glucose Random 95 mg/dL (60-115); Potassium 4.3 mmol/L (3.3-5.1); Sodium 139 mmol/L (135-145); Total Protein 8.5 g/dL (6.5-8.0)
[2023-11-28 16:50] LABS: Erythrocyte Sedimentation Rate 13 MM/HR (0-15)
== END 2023-11-28 15:02 | disposition home or self-care (01) ==
LOC: HO.LAB 15:01
PROVIDERS: Visit Provider Nurse Practitioner Family
DX: M06.00 Rheumatoid arthritis without rheumatoid factor, unspecified site (principal); Z79.60 Long term (current) use of unspecified immunomodulators and immunosuppressants; Z79.899 Other long term (current) drug therapy
CPT/HCPCS: 36415; 80053; 85025; 85652; 86140

== ENCOUNTER 2023-12-03 14:49 | Outpatient (AMB) | payer OTHER, SELFPAY ==
--- NOTE | 2023-12-03 15:02 | MHC.OFFVIS ---
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 He remains on Humira 40 mg every 2 weeks. He says in general he is doing well with minimal discomfort in the joints with activity but he does note the morning stiffness is taking longer to resolved. He also has stiffness in the left ankle and the left shoulder that improves with activity. He bicycles to work and that is about a 2 mile trip. He says that the stiffness and the soreness is taking longer to resolve. 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 Seronegative rheumatoid arthritis Surgical History History of tonsillectomy Family History Mother Diabetes Arthritis Social History Household Members: Spouse and Children Housing: House Alcohol intake: never Patient Tobacco Use Status: Never used Tobacco e-Cigarette/Vaping Use: Never Used Current occupational status: employed Cognitive needs: No Hearing needs: No Vision needs: No Review of Systems Const All systems reviewed & are unremarkable except as noted in HPI and below Physical Exam Vital Signs: Last Vital Signs Pulse 94 12/03/23 15:03 BP 144/68 H 12/03/23 15:03 Pulse Ox 96 12/03/23 15:03 Oxygen Delivery Method Room Air 12/03/23 15:03 BMI result Body Mass Index 28.5 APPEARANCE: Patient in no acute distress, groomed and nourished EYES no redness, eyelids normal EXTREMITIES: No edema, no calf tenderness, normal peripheral pulses. SKIN: No inflammatory or neoplastic lesions. Normal color and turgor JOINT EXAM: Cervical Spine:? Full range of motion without pain; no tenderness. Thoracic Spine:? No tenderness on palpation. Lumbar Spine:? Alignment normal.? Full range of motion without pain, no tenderness. Hands:? Normal pain-free range of motion without tenderness, swelling, increased warmth or erythema. 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 Wrists: Normal pain-free range of motion without tenderness, swelling, increased warmth or erythema. Elbows: Normal pain-free range of motion without tenderness, swelling, increased warmth or erythema. Shoulders: LEFT:? Mild discomfort with abduction at 150 degrees. Motion seems to be limited at that point. There is also some limitation of motion to about 20 degrees of internal or external rotation. The shoulder is not tender. There is no abductor weakness, adenopathy or swelling. ? RIGHT:? Slight limitation of motion but no pain.? No weakness, swelling, increased warmth or erythema. Hips:? Full range of motion without pain. Hip bursa: No tenderness. Knees:? Normal pain-free range of motion without tenderness, swelling, increased warmth or erythema.? There is no effusion or crepitation Ankles:? LEFT:? Normal range of motion.? No tenderness. There probably is some mild valgus deformity at the ankle. There is slight lateral swelling and medial swelling without redness or warmth. There is minimal medial tenderness. ? RIGHT:? Normal range of motion.? No tenderness, swelling, increased warmth or erythema. Feet:? Left: Slight pes planus deformity but no tenderness. Minimal 1st MTP bony enlargement without tenderness. Right: Normal pain-free range of motion with slight 1st MTP bony enlargement. No tenderness, soft tissue swelling, increased warmth or erythema.? Results Reviewed Results Reviewed: Laboratory Tests 10/28/22 11/28/23 14:50 15:09 WBC 7.2 RBC 4.58 L Hgb 13.5 L 13.9 L Hct 41.2 L 40.1 L MPV 9.0 L Immature Gran % (Auto) 0.5 H Abs Immat Gran (auto) 0.04 H ESR 13 13 Creatinine 0.98 AST 20 ALT 18 C-Reactive Protein 0.22 0.23 Assessment & Plan Assessment & Plan (1) Seronegative rheumatoid arthritis: Comment: Methotrexate 09/2016 -self discontinued 05/2021 Humira 08/2018- present patient doing well for many years. Dose decreased to every 3 weeks in May, then patient missed a dose of Humira. 09/09/2022 patient with increased synovitis on exam, prednisone taper provided and Humira changed back to every 2 weeks. 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012 - Primary osteoarthritis, left shoulder Plan #Rheumatoid arthritis/OA multiple sites. Joseph, 57 yoM with Seronegative RA effectively was doing well with HUMIRA 40mg Q2W, He has not had joint swelling since last visit and no synovitis seen on PE but he says the joint stiffness and soreness are lasting longer that normal. We will go to weekly Humira 40mg and assess for sometime if this helps with the morning stiffness and soreness. He has been doing humira for a while so likely can be decreased efficacy. He does of osteoarthritis in the left ankle and shoulders seen on imaging. He tries not to use Tylenol or Ibuprofen for joint pain unless he feels really bad. ESR/CRP wnl. 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 Stable Cytopenia. - will order to be done today, last set in October 2022. Patient denies side effects of Humira and none seen on PE. He is reminded to stop Humira if he has a fever or infection. Next follow-up in 6 months and labs to be done 1 week prior Orders: Orders Complete Blood Count Auto Diff Today Z79.60 - group home (current) use of unspecified immunomodulators and immunosuppressants Erythrocyte Sedimentation Rate Today Z79.60 - group home (current) use of unspecified immunomodulators and immunosuppressants Comprehensive Met. 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 (current) use of unspecified immunomodulators and immunosuppressants C Reactive Protein Today Z79.60 - group home (current) use of unspecified immunomodulators and immunosuppressants Medications: Refilled Humira(CF) Pen (adalimumab) 40 mg (0.4 mL) subcut Q2W 4 ea 3RF NS M06.00 - Rheumatoid arthritis without rheumatoid factor, unspecified site Coding Level of Care Code Est Pt Level 4 (17837) Complex EM visit Add On G2211 Diagnoses Seronegative rheumatoid arthritis M06.00 Long-term use of immunosuppressant medication Z79.60 Primary osteoarthritis of left ankle M19.072 Osteoarthritis type: primary Primary osteoarthritis of both shoulders M19.011; M19.012 Osteoarthritis type: primary
[2023-12-03 15:03] VITALS: BP 144/68; PULSE 94; O2SAT 96; BMI 28.5
== END 2023-12-03 15:26 | disposition home or self-care (01) ==
LOC: HO.RHE 14:49
PROVIDERS: PCP Nurse Practitioner Family; Visit Provider Nurse Practitioner Family
DX: M06.00 Rheumatoid arthritis without rheumatoid factor, unspecified site (principal); Z79.60 Long term (current) use of unspecified immunomodulators and immunosuppressants; M19.072 Primary osteoarthritis, left ankle and foot; M19.011 Primary osteoarthritis, right shoulder; M19.012 Primary osteoarthritis, left shoulder
CPT/HCPCS: 99214; G2211

== ENCOUNTER → 2023-12-03 14:49 | Outpatient (BNVA) | payer OTHER, SELFPAY | PROVIDERS: PCP Nurse Practitioner Family; Visit Provider Nurse Practitioner Family ==

== ENCOUNTER 2024-05-31 15:30 | Outpatient (AMB) | payer OTHER, SELFPAY ==
[2024-05-31 15:33] VITALS: BP 128/72; PULSE 98; O2SAT 100; BMI 29.6
--- NOTE | 2024-05-31 15:33 | A.OFFVIS_ITS ---
Vital Signs 05/31/24 15:33 Height 5 ft 8 in Weight 194 lb 14.218 oz BMI 29.6 BP 128/72 Blood Pressure Location Lt brachial Position Sitting Pulse 98 Pulse Source Pulse Oximeter Pulse Oximetry (%) 100 Oxygen Delivery Method Room Air Intake Visit Reasons: RA/Increased Humira to weekly/CM Intake Note: Patient presents today for follow up on RA, he was last seen in the office on 12/03/23 by Clair Campbell. Allergies No Known Allergies [No Known Allergies*] Allergy (Verified 05/31/24 15:34) Medication List - Last Reconciled 05/31/24 by Rosa Correia MD [id number] 250-250-65 mg (Excedrin Migraine) 2 tabs PO Q6H PRN Humira(CF) Pen (adalimumab) 40 mg (0.4 mL) subcut QWEEK NS HPI Comments Details: Patient is a 58-year-old male with seronegative rheumatoid arthritis and polyarticular osteoarthritis who presents today for follow up. Interval History: Patient last 12/03/2023 with Clair Campbell. At that time he did not have any deneen dence of joint swelling or synovitis on physical exam however he had some prolonged morning stiffness and so his Humira was increased from every 2 weeks to every week. Today Patient states he is tolerating the increased frequency of Humira No side effects AM stiffness has improved Rheumatologic History: Diagnosed 2016 Methotrexate 09/2016 -self discontinued 05/2021 Humira 08/2018- present patient doing well for many years. Dose decreased to every 3 weeks in May, then patient missed a dose of Humira. 09/09/2022 patient with increased synovitis on exam, prednisone taper provided and Humira changed back to every 2 weeks. 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 Seronegative rheumatoid arthritis Surgical History History of tonsillectomy Family History Mother Diabetes Arthritis Social History Household Members: Spouse and Children Housing: House Alcohol intake: never Patient Tobacco Use Status: Never used Tobacco e-Cigarette/Vaping Use: Never Used Current occupational status: employed Cognitive needs: No Hearing needs: No Vision needs: No Review of Systems Const Details: Review of Systems Constitutional: Denies fever, chills, weight loss ENT: Denies vision changes, eye pain or eye redness, dental caries, dry mouth GI: Denies nausea, vomiting, diarrhea, abdominal pain, change in BM Pulm: Denies SOB, CURRY, hemoptysis, wheezing Cards: Denies chest pain, palpitations Skin: Denies Raynaud's, rash, nail changes, photosensitivity, MANAGER 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 Well appearing and in no apparent painful distress HEENT Conjunctiva and sclera clear. ?Pupils equal round and reactive to light. ?No lymphadenopathy. ? CHEST/RESPIRATORY SYSTEM Normal respiratory effort and able to speak in complete sentences. ?Clear to auscultation bilaterally. ?No crackles, rales, rhonchi, wheezes heard. CARDIAC SYSTEM Regular rate and rhythm. ?S1 and S2 heard no murmurs. ?Radial pulses intact bilaterally MSK Hands: ?Good orientation & mobility specialist strength bilaterally. No deformities noted. ?No synovitis noted to the MCPs, PIPs or DIPs. ?No tenderness to palpation of these joints. Wrists: ?Full range of motion at the wrists without pain. ?No tenderness to palpation or synovitis noted to the wrists. Elbows: Full range of motion without pain. No tenderness, weakness, swelling, increased warmth or erythema. Shoulders: Full range of motion without pain. No tenderness, weakness, swelling, increased warmth or erythema. Hips: Full range of motion without pain. Hip bursa: No tenderness to palpation Knees: ?Full range of motion. ?No tenderness, swelling, increased warmth or erythema.?No effusion or crepitations Ankles: Full range of motion. ?No tenderness, swelling, increased warmth or erythema.? Feet: ?Negative squeeze test. ?No tenderness to palpation or swelling of the MTPs. Tender points:??No tenderness to palpation of the neck, shoulders, chest, elbows, hips, buttocks or knees. SKIN Skin intact without rashes. Results Reviewed Results Reviewed: Laboratory Tests 11/28/23 15:09 WBC 7.2 RBC 4.58 L Hgb 13.9 L Hct 40.1 L Plt Count 271 ESR 13 Sodium 139 Potassium 4.3 Chloride 104 Carbon Dioxide 29 BUN 13 Creatinine 0.98 AST 20 ALT 18 Alkaline Phosphatase 63 C-Reactive Protein 0.23 Assessment & Plan Assessment & Plan (1) Seronegative rheumatoid arthritis: Comment: Methotrexate 09/2016 -self discontinued 05/2021 Humira 08/2018- present patient doing well for many years. Dose decreased to every 3 weeks in May, then patient missed a dose of Humira. 09/09/2022 patient with increased synovitis on exam, prednisone taper provided and Humira changed back to every 2 weeks. 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 immunomodulators and immunosuppressants Category: Medical Plan: #Long-term Use of TNF Inhibitors: Humira Discussed with the patient the benefits and risks of TNF inhibitors for the management of the rheumatic condition Benefits include reduce pain, maintenance of remission and reduction of flares as well as ?progression of the disease Risks include injection sites/infusion reactions, serious infections (such as bacterial infections, opportunistic infections), malignancy, delaminating syndromes, autoimmune phenomena, CHF exacerbations, palmar plantar psoriasis and cytopenias Recommended rotating injection sites, and holding medication during and for up to 1 week after resolution of a febrile illness or open skin wound Plan I spent 20 minutes reviewing the record and labs, seeing the patient, discussing the treatment plan and documenting in the medical record ? Orders: Orders Complete Blood Count Auto Diff Today M06.00 - Rheumatoid arthritis without rheumatoid factor, unspecified site Erythrocyte Sedimentation Rate Today M06.00 - Rheumatoid arthritis without rheumatoid factor, unspecified site C Reactive Protein Today M06.00 - Rheumatoid arthritis without rheumatoid factor, unspecified site Comprehensive Met. Panel Today M06.00 - Rheumatoid arthritis without rheumatoid factor, unspecified site Coding Level of Care Code Est Pt Level 3 (96940) Complex EM visit Add On G2211 Diagnoses Seronegative rheumatoid arthritis M06.00 Long-term use of immunosuppressant medication Z79.60
== END 2024-05-31 16:09 | disposition home or self-care (01) ==
PROVIDERS: PCP Nurse Practitioner Family; Visit Provider Student in an Organized Health Care Education/Training Program
DX: M06.00 Rheumatoid arthritis without rheumatoid factor, unspecified site (principal); Z79.60 Long term (current) use of unspecified immunomodulators and immunosuppressants
CPT/HCPCS: 99213

== ENCOUNTER 2024-05-31 15:30 | Outpatient (REF) | payer OTHER, SELFPAY ==
[2024-05-31 16:25] LABS: MANUAL DIFF FLAG NO
[2024-05-31 16:54] LABS: Basophils Percent Auto 0.5 % (0-2); Eosinophils Absolute Auto 0.1 X10*3/uL (0.0-0.4); Eosinophils Percent Auto 0.6 % (0-4); Hematocrit 40.7 % (42.0-52.0); Hemoglobin 13.9 g/dl (14.0-18.0); Imm Gran Abs Auto 0.03 X10*3/uL (0.00-0.03); Imm Gran Pct Auto 0.4 % (0.0-0.4); Lymphocytes Absolute Auto 2.3 X10*3/uL (1.2-4.9); Lymphocytes Percent Auto 29.3 % (20-40); Mean Corpuscular HGB Conc 34.2 g/dl (31.0-36.0); Mean Corpuscular Volume 87.9 fL (80.0-98.0); Mean Platelet Volume 9.3 fL (9.4-12.4); Monocytes Absolute Auto 0.7 X10*3/uL (0.1-1.2); Neutrophils Absolute Auto 4.7 x10*3/uL (2.0-8.3); Neutrophils Percent Auto 60.2 % (45-73); Platelet Count 252 X10*3/uL (160-400); Red Blood Count 4.63 X10*6/uL (4.60-5.80); Red Cell Distribution Width 12.1 % (11.0-16.0); White Blood Count 7.8 X10*3/uL (4.8-10.8)
[2024-05-31 17:35] LABS: Alanine Aminotransferase 22 U/L (0-40); Albumin Level 4.3 g/dL (3.5-5.0); Alkaline Phosphatase 61 U/L (39-117); Anion Gap 10 (12-20); Aspartate Amino Transferase 25 U/L (5-37); Bilirubin Total 0.4 mg/dL (0.0-1.0); Blood Urea Nitrogen 11 mg/dL (9-16); C Reactive Protein 0.55 mg/dL (< or = 0.50); Calcium 9.8 mg/dL (8.4-10.2); Carbon Dioxide 29 mmol/L (22-29); Chloride 103 mmol/L (96-108); Estimated Glomerular Filt Rate > 60; Glucose Random 92 mg/dL (60-115); Potassium 4.4 mmol/L (3.3-5.1); Sodium 138 mmol/L (135-145); Total Protein 8.3 g/dL (6.5-8.0)
[2024-05-31 17:44] LABS: Erythrocyte Sedimentation Rate 14 MM/HR (0-15)
== END 2024-05-31 15:31 | disposition home or self-care (01) ==
LOC: HO.LAB 15:30
PROVIDERS: PCP Nurse Practitioner Family; Visit Provider Student in an Organized Health Care Education/Training Program
DX: M06.00 Rheumatoid arthritis without rheumatoid factor, unspecified site (principal)
CPT/HCPCS: 36415; 80053; 85025; 85652; 86140

== ENCOUNTER 2024-11-09 15:42 | Outpatient (REF) | payer OTHER, SELFPAY ==
[2024-11-09 15:58] LABS: MANUAL DIFF FLAG NO
--- OUTSIDE RECORDS SUMMARY | 2024-11-09 16:38 | XMS_ITS | Clinical Summary ---
Author Organization [facility] Address [address] [place] [address] Care Team Providers Care Cyber Defense Forensics Analyst Name Role Phone Unavailable Primary Care Provider Unavailabl e Source Comments PLEASE NOTE, if this patient is a minor, it may be UNLAWFUL to discuss sensitive information that is contained in these records (such as FAMILY PLANNING, MENTAL HEALTH or SUBSTANCE ABUSE) with the minor patient's parent or other person without the patient's specific authorization.[facility] Immunizations Immunization Administration Dates Next Due MODERNA COVID-19 VACCINE BIVALENT, BLUE CAP, 6M+ 04/13/2022 Social History Tobacco Use Types Packs/Day Years Used Date Smoking Tobacco: Never Assessed Social Connections Answer Date Recorded Social Connections and Isolation 0 04/13/2022 Financial Resource Strain Answer Date R ecorded Financial Resource Strain 0 2021 Stress Answer Date Recorded Stress 0 04/13/2022 Physical Activity Answer Date Recorded Physical Activity 0 04/13/2022 Food Insecurity Answer Date Recorded Food 0 04/13/2022 Transportation Needs Answer Date Record ed Transportation 0 04/13/2022 Housing Stability Answer Date Recorded Housing 0 04/13/2022 Safety and Environment Answer Date Magdi rded Safety 0 04/13/2022 Utilities Answer Date Recorded Utilities 0 04/13/2022 Employment Answer Date Recorded Employment 0 04/13/2022 Sex and Gender Information Value Date Recorded Sex Assigned at Not on file Legal Sex Male 9:00 AM PDT Gender Identity Not on file Sexual Orientation Not on file Plan of Treatment Health Maintenance Due Date Last Done Comments Anxiety Screening 1966 Diabetes Screening 1966 Hepatitis C Screening 1966 Lipid Screening 1966 Tobacco Screening 1966 HIV Screening 1981 Hypertension Screening (#1) 1984 Imm-DTaP/Tdap/Td (1 - Tdap) 1985 Imm-Hepatitis B (1 of 3 - 19+ 3-dose series) 6 CT Colonography 2011 Colonoscopy 2011 Colorectal Cancer Screening 2011 FIT/gFOBT 2011 Fecal DNA 2011 Flexible Sigmoidoscopy 2011 Imm-Zoster, Recombinant (1 of 2) 2016 [id number] (2 - season) 2024 022 Imm-Influenza (#1) 2024 Alcohol and Drug Screen 06/23/2024 Depression Annual Screen 06/23/2024 [facility] Sub[facility] Plan / Payer (Ef fective 2021-Present) Name:Hein, Joseph Relation to Subscriber:Self Name:Joseph Hein Payer ID:[id number] Group ID:Not on file Type:Indemnity Address: [facility] [id number] [place] [id number]
[2024-11-09 17:12] LABS: Basophils Percent Auto 0.4 % (0-2); Eosinophils Absolute Auto 0.1 X10*3/uL (0.0-0.4); Eosinophils Percent Auto 1.2 % (0-4); Hematocrit 40.1 % (42.0-52.0); Hemoglobin 13.7 g/dl (14.0-18.0); Imm Gran Abs Auto 0.04 X10*3/uL (0.00-0.03); Imm Gran Pct Auto 0.5 % (0.0-0.4); Lymphocytes Absolute Auto 2.6 X10*3/uL (1.2-4.9); Lymphocytes Percent Auto 31.6 % (20-40); Mean Corpuscular HGB Conc 34.2 g/dl (31.0-36.0); Mean Corpuscular Hemoglobin 29.9 pg (27.0-33.0); Mean Corpuscular Volume 87.6 fL (80.0-98.0); Monocytes Absolute Auto 0.7 X10*3/uL (0.1-1.2); Monocytes Percent Auto 8.2 % (2-11); Neutrophils Absolute Auto 4.8 x10*3/uL (2.0-8.3); Neutrophils Percent Auto 58.1 % (45-73); Platelet Count 300 X10*3/uL (160-400); Red Blood Count 4.58 X10*6/uL (4.60-5.80); Red Cell Distribution Width 12.3 % (11.0-16.0); White Blood Count 8.3 X10*3/uL (4.8-10.8)
[2024-11-09 17:40] LABS: Albumin Level 4.4 g/dL (3.5-5.0); Alkaline Phosphatase 70 U/L (39-117); Anion Gap 15 (12-20); Bilirubin Total 0.4 mg/dL (0.0-1.0); Blood Urea Nitrogen 20 mg/dL (9-16); C Reactive Protein 0.13 mg/dL (< or = 0.50); Calcium 9.6 mg/dL (8.4-10.2); Carbon Dioxide 27 mmol/L (22-29); Chloride 100 mmol/L (96-108); Estimated Glomerular Filt Rate > 60; Glucose Random 84 mg/dL (60-115); Potassium 4.6 mmol/L (3.3-5.1); Sodium 137 mmol/L (135-145); Total Protein 8.3 g/dL (6.5-8.0)
[2024-11-09 17:53] LABS: Alanine Aminotransferase 29 U/L (0-40); Aspartate Amino Transferase 29 U/L (5-37)
[2024-11-09 17:57] LABS: Erythrocyte Sedimentation Rate 15 MM/HR (0-15)
[2024-11-10 03:35] LABS: Hepatitis A Antibody IgM 0.15 Index (0-0.79); ~Hepatitis A Antibody IgM Nonreactive (Nonreactive)
[2024-11-10 04:13] LABS: HBc Num1 0.08 S/CO (0.00-0.79); HBsAGNum1 0.48 S/CO (0.00-0.99); Hepatitis B Core Antibody Nonreactive (Nonreactive); Hepatitis B Surface Antigen Negative (Negative); ~HepC Num1 0.41 S/CO (0.00-0.79); ~Hepatitis B Surface Antibody NONREACTIVE (Nonreactive); ~Hepatitis C Antibody Nonreactive (Nonreactive)
[2024-11-11 21:48] LABS: TS Negative Control Passed; TS Panel A 0; TS Panel B 0; TS Positive Control Passed; TSpotTB Negative (Negative)
== END 2024-11-09 15:43 | disposition home or self-care (01) ==
LOC: HO.LAB 15:42
PROVIDERS: PCP Nurse Practitioner Family; Visit Provider Student in an Organized Health Care Education/Training Program
DX: M06.00 Rheumatoid arthritis without rheumatoid factor, unspecified site (principal)
CPT/HCPCS: 36415; 80053; 85025; 85652; 86140; 86481; 86704; 86706; 86709; 86803; 87340

== ENCOUNTER 2024-12-29 15:25 | Outpatient (AMB) | payer OTHER, SELFPAY ==
--- NOTE | 2024-12-29 15:28 | MHC.OFFVIS ---
Vital Signs 12/29/24 15:29 Height 5 ft 8 in Weight 195 lb 15.855 oz BMI 29.8 BP 118/76 Blood Pressure Location Lt brachial Position Sitting Pulse 81 Pulse Source Pulse Oximeter Pulse Oximetry (%) 98 Oxygen Delivery Method Room Air Intake Visit Reasons: follow up Intake Note: Patient last seen by Doctor Rosa Correia on 05/31/24. Presents today for RA follow up and test results. Allergies No Known Allergies (No Known Allergies*) Allergy (Verified 05/31/24 15:34) HPI Comments Details: Patient is a 58-year-old male with seronegative rheumatoid arthritis and polyarticular osteoarthritis who presents today for follow up. Interval History: Patient last 05/31/24 - Improved sx on weekly Humira Today - Continues to do well on the weekly Humira, no complaints Rheumatologic History: Diagnosed 2016 Methotrexate 09/2016 -self discontinued 05/2021 Humira 08/2018- present patient doing well for many years. Dose decreased to every 3 weeks in May, then patient missed a dose of Humira. 09/09/2022 patient with increased synovitis on exam, prednisone taper provided and Humira changed back to every 2 weeks. 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 Seronegative rheumatoid arthritis Surgical History History of tonsillectomy Family History Mother Diabetes Arthritis Social History Household Members: Spouse and Children Housing: House Alcohol intake: never Patient Tobacco Use Status: Never used Tobacco e-Cigarette/Vaping Use: Never Used Current occupational status: employed Cognitive needs: No Hearing needs: No Vision needs: No Review of Systems Const Details: Review of Systems Constitutional: Denies fever, chills, weight loss ENT: Denies vision changes, eye pain or eye redness, dental caries, dry mouth GI: Denies nausea, vomiting, diarrhea, abdominal pain, change in BM Pulm: Denies SOB, CURRY, hemoptysis, wheezing Cards: Denies chest pain, palpitations Skin: Denies Raynaud's, rash, nail changes, photosensitivity, 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 Well appearing and in no apparent painful distress HEENT Conjunctiva and sclera clear. ?Pupils equal round and reactive to light. ?No lymphadenopathy. ? CHEST/RESPIRATORY SYSTEM Normal respiratory effort and able to speak in complete sentences. ?Clear to auscultation bilaterally. ?No crackles, rales, rhonchi, wheezes heard. CARDIAC SYSTEM Regular rate and rhythm. ?S1 and S2 heard no murmurs. ?Radial pulses intact bilaterally MSK Hands: ?Good informatics analyst strength bilaterally. No deformities noted. ?No synovitis noted to the MCPs, PIPs or DIPs. ?No tenderness to palpation of these joints. Wrists: ?Full range of motion at the wrists without pain. ?No tenderness to palpation or synovitis noted to the wrists. Elbows: Full range of motion without pain. No tenderness, weakness, swelling, increased warmth or erythema. Shoulders: Decreased ROM to the left shoulder with no TTP or swelling. Full ROM to the right shoulder Knees: ?Full range of motion. ?No tenderness, swelling, increased warmth or erythema.?No effusion or crepitations Ankles: Full range of motion. ?No tenderness, swelling, increased warmth or erythema.? Feet: ?Negative squeeze test. ?No tenderness to palpation or swelling of the MTPs. Tender points:??No tenderness to palpation of the neck, shoulders, chest, elbows, hips, buttocks or knees. SKIN Skin intact without rashes. Results Reviewed Results Reviewed: Laboratory Tests 05/31/24 11/09/24 16:24 15:56 WBC 8.3 RBC 4.58 L Hgb 13.7 L Hct 40.1 L Plt Count 300 ESR 15 Sodium 137 Potassium 4.6 Chloride 100 Carbon Dioxide 27 BUN 20 H Creatinine 0.96 AST 29 ALT 29 C-Reactive Protein 0.55 H 0.13 Laboratory Tests 11/09/24 15:56 Hepatitis A IgM Ab Nonreactive Hep Bs Antigen Negative Hep Bs Antibody NONREACTIVE Hep B Core Total Ab Nonreactive Hepatitis C Ab (EIA) Nonreactive TB Test (T-Spot) Com Negative Assessment & Plan Assessment & Plan (1) Seronegative rheumatoid arthritis: Comment: Methotrexate 09/2016 -self discontinued 05/2021 Humira 08/2018- present patient doing well for many years. Dose decreased to every 3 weeks in May, then patient missed a dose of Humira. 09/09/2022 patient with increased synovitis on exam, prednisone taper provided and Humira changed back to every 2 weeks. Code(s): M06.00 - Rheumatoid arthritis without rheumatoid factor, unspecified site Category: Medical Plan: #Seropositive RA Patient is a 59-year-old male with seronegative rheumatoid arthritis here today for follow up. Currently in remission on Humira monotherapy Plan - Humira 40mg SC weekly - RTC 6 months - Labs before visit: CBC, CMP, ESR, CRP (2) Long-term use of immunosuppressant medication: Code(s): Z79.60 - custodial (current) use of unspecified immunomodulators and immunosuppressants Category: Medical Plan: #Long-term Use of TNF Inhibitors: Humira Discussed with the patient the benefits and risks of TNF inhibitors for the management of the rheumatic condition Benefits include reduce pain, maintenance of remission and reduction of flares as well as ?progression of the disease Risks include injection sites/infusion reactions, serious infections (such as bacterial infections, opportunistic infections), malignancy, delaminating syndromes, autoimmune phenomena, CHF exacerbations, palmar plantar psoriasis and cytopenias Recommended rotating injection sites, and holding medication during and for up to 1 week after resolution of a febrile illness or open skin wound Plan I spent 25 minutes reviewing the record and labs, seeing the patient, discussing the treatment plan and documenting in the medical record ? Coding Level of Care Code Est Pt Level 3 (84300) Complex EM visit Add On G2211 Diagnoses Seronegative rheumatoid arthritis M06.00 Long-term use of immunosuppressant medication Z79.60
[2024-12-29 15:29] VITALS: BP 118/76; PULSE 81; O2SAT 98; BMI 29.8
--- OUTSIDE RECORDS SUMMARY | 2024-12-29 15:33 | XMS_ITS | Clinical Summary ---
Author Organization [facility] Address [address] [place] [address] Care Team Providers Care Offset Assistant Press Operator Name Role Phone Unavailable Primary Care Provider [...] 2011 Fecal DNA 2011 Flexible Sigmoidoscopy 2011 Imm-Pneumococcal 50+ (1 of 1 - PCV) 2016 Imm-Zoster, Recombinant (1 of 2) 2016 Cym-TEWEO-02 (2 - season) 2024 022 Alcohol and Drug Screen 06/23/2024 Depression Annual Screen 06/23/2024 Imm-Influenza (Season Ended) 2025 Insurance [facility]
== END 2024-12-29 16:06 | disposition home or self-care (01) ==
PROVIDERS: PCP Nurse Practitioner Family; Visit Provider Student in an Organized Health Care Education/Training Program
DX: M06.00 Rheumatoid arthritis without rheumatoid factor, unspecified site (principal); Z79.60 Long term (current) use of unspecified immunomodulators and immunosuppressants
CPT/HCPCS: 99213